=== PATIENT | male | born 1960 | race Caucasian/White ===

== ENCOUNTER 2023-11-23 07:24 | Emergency (ER) | payer BC, SELFPAY ==
[2023-11-23] VITALS (24 sets, daily range): BP systolic 109–132; BP diastolic 76–97; BMI 31.4
--- NOTE | 2023-11-23 07:53 | ED.GENMED ---
History of Present Illness
General
Chief Complaint: Cardiac Symptoms
Source: patient
Time Seen by Provider: 11/23/23 07:43
Travel History
Have you had any contact with someone who has COVID-19?: No
Do you have any symptoms of coronavirus? Fever > 100 degrees, chills, cough, shortness of breath, sore throat, loss of taste or smell, muscle aches, or headache?: No
History of Present Illness
History of Present Illness:
63-year-old male presents to the emergency room complaining of palpitations, mild chest discomfort and feeling dizzy. Patient recognized the symptoms as atrial fibrillation. He checked his rhythm on a home monitoring device which confirmed the
presence of atrial fibrillation. Patient is followed by pipe connector at [facility]. He does not take any oral anticoagulants. Patient had a cardioversion for similar symptoms about 1 year ago. He took Eliquis for 1 month
following the cardioversion at that time. However after discussion with his pipe connector it was discontinued. Patient does not take any rate controlling medications. Patient very confident that he recognizes his symptoms when he is in A-fib.
Past History
Past History
ED Past Medical History: None
ED Past Surgical History: Orthopedic
Social History
Tobacco: Other (cigar)
Alcohol: Occasional
Drug: None
Personal:
Living: with family
Employment: Other
Family History
Family History: Other
Phy Exam
Physical Exam
Physical Exam:
General: Awake, Alert, Oriented X3. No acute distress.
Vitals: Tachycardic
Head: Atraumatic
Eyes: Pupils equal, EOMI
Throat: Airway intact, no exudates
Neck: Trachea midline
Lungs: Clear and equal b/l
Heart: Regular rate, no murmurs
Abd: Soft, Nontender, No pulsatile mass
Neuro: Nonfocal
Skin: Warm, dry, no rash
Extremities: pulses equal b/l, no edema
Scores
[id number] Score for Afib Stroke Risk
Age in Years (65=0, 65-74=1, >/=75=2): <65
Sex (Female=+1): Male
Congestive Heart Failure History (Yes=+1): No
Hypertension History (Yes=+1): No
Stroke/TIA/Thromboembolism History (Yes=+2): No
Vascular Disease History (Yes=+1): No
Diabetes Mellitus (Yes=+1): No
Score: 0
Anticoagulation Recommendations: Anticoagulation not indicated (as validated in nonvalvular afib). Consider anticoagulation irrespective of score in patients with HCM
Course
Orders/Labs/Results
Orders:
Orders
11/23/23 07:30
EKG [Electrocardiogram (*1)] Urgent
Reason for Study: Atrial Fibrillation
EKG- Treatment ONCE
11/23/23 08:46
Apixaban [Eliquis] 5 mg PO NOW STA
11/23/23 09:37
Propofol [Diprivan] 20 ml .ROUTE .STK-MED
11/23/23 10:00
EKG [Electrocardiogram (*1)] Stat
Reason for Study: Atrial Fibrillation
EKG- Treatment ONCE
Vital Signs
Initial and Last Documented VS:
Initial Vital Signs
Temp Pulse Resp BP Pulse Ox
98.8 F 78 17 132/84 97
11/23/23 07:28 11/23/23 07:28 11/23/23 07:28 11/23/23 07:28 11/23/23 07:28
Last Documented Vital Signs
Temp Pulse Resp BP Pulse Ox
97.7 F 65 19 120/84 97
11/23/23 11:15 11/23/23 11:14 11/23/23 11:14 11/23/23 11:15 11/23/23 10:45
Procedures
Cardioversion
Indication:: Afib
Performed by:: myself
Synchronized?: Yes
Energy Used: 200 joules
Number of attempts: 1
Successful?: Yes
ASA Risk Score: Class II
Any reaction or bad outcome to prior sedation/anesthesia?: No history of a reaction
Sedation level to be attained: moderate
Chart and allergies reviewed: Yes
Patient reassessed prior to sedation: Yes
Time out completed at (validating right patient & procedure): 09:55
History of difficult intubation: No
Airway free of obstruction: Yes
Patient has a gag reflex: Yes
Patient is able to open mouth: Yes
Patient has no dentures: Yes
Patient has no loose teeth: Yes
Medication administered by Provider during Moderate Sedation: IV Propofol (mg)
Total dose administered: 60
Time drug administered: 09:56
Start Time: 09:55
Stop Time: 10:10
*Pulse Oximetry
Patient hypoxic: no
*Critical Care Note
Total Time (30-74mins, 75-104mins- exclusive of procedures): Not Applicable
ED Attending Note
-
Portions of this chart may have been created with voice recognition software.� Occasional wrong word or��sound alike� substitutions may have occurred due to the inherent limitations of voice recognition software.
Discharge Plan
Departure
Patient Disposition: Home (Routine Discharge)
Date of Disposition: 11/23/23
Time of Disposition: 11:24
Patient with high blood pressure during this ER visit?: No
Condition: Good
Discharge Problem:
Paroxysmal A-fib
Instructions: Atrial Fibrillation (DC), Procedural Sedation, Adult ED
Prescriptions:
New
apixaban 5 mg tablet
5 mg PO BID Qty: 60 0RF
No Action
apixaban [Eliquis] 5 MG tablet
5 mg PO BID 10 Days Qty: 19 0RF
apixaban [Eliquis] 5 MG tablet
5 mg PO BID Qty: 60 0RF
Eliquis 5 mg tablet
5 mg PO BID Qty: 60 0RF
Referrals:
NONE,* [Family Provider] -
Activity Restrictions/Additional Instructions:
Please contact your pipe connector to inform them you were in the ER and had a cardioversion for a fib. You need to take Eliquis twice a day for at least a month but discuss this with your pipe connector.
Interventions
Interventions:
*Risk Screen - Suicide Last Done: 11/23/23 07:29
*General Assessment Last Done: 11/23/23 07:29
*Neglect/Abuse Screening Last Done: 11/23/23 07:29
*ED COVID-19 Vaccine History Last Done: 11/23/23 07:29
*Nursing Disposition Last Done: 11/23/23 13:18
ED- Pulmonary Assessment Last Done: 11/23/23 08:19
ED- Cardiac Assessment Last Done: 11/23/23 08:18
Discharge Date and Time
Discharge Date/Time: 11/23/23 12:00
[2023-11-23] MEDS: ELIQUIS 5 MG PO (09:16)
== END 2023-11-23 12:00 | disposition home or self-care (01) ==
LOC: EMR 07:24
PROVIDERS: EMERGENCY PHYSICIAN Emergency Medicine
DX: I48.0 Paroxysmal atrial fibrillation (principal); R07.89 Other chest pain; R42 Dizziness and giddiness; F17.290 Nicotine dependence, other tobacco product, uncomplicated
CPT/HCPCS: 92960; 99285; 99152; 93005